=== PATIENT | male | born 1965 | race Caucasian/White ===

== ENCOUNTER 2018-04-06 21:53 | Emergency (ER) | payer SELFPAY ==
[2018-04-06 22:05] VITALS: BP 138/83; PULSE 99; O2SAT 98
[2018-04-06] MEDS ORDERED: Sodium Chloride 0.9% 1000 ML 1,000 ML IV STA (22:34)
--- NOTE | 2018-04-06 22:34 | ERPHSYRPT ---
- History of Present Illness Time Seen by Provider: 04/06/18 22:16 Source: patient Patient Subjective Stated Complaint: Pt arrives to ER with c/o abscess to left arm since states is now draining believes is infected. unsure of cause for abscess. Denies injury to arm. Abscess is now red and has some swelling around site. Triage Nursing Assessment: see above Physician History: PATIENT WITH A HISTORY OF HYPERTENSION, EXPRESSED A PIMPLE OVER LEFT MID FOREARM NOW HAS PROGRESSIVE SWELLING WITH DRAINAGE OVER LEFT MID FOREARM. DENIES FEVER OR CHILLS., HAS INCREASING REDNESS AND WARMTH AROUND WOUND. Occurred: days ago Method of Injury: other (EXPRESSED A PIMPLE OF LEFT FOREARM) Quality: constant, throbbing Severity of Pain-Max: moderate Severity of Pain-Current: moderate Extremities Pain Location: forearm: left Modifying Factors: Improves With: nothing Allergies/Adverse Reactions: morphine Allergy (Verified 04/06/18 22:05) Itching venom-wasp [wasp venom] Allergy (Verified 04/06/18 22:05) Home Medications: Valsartan/Hydrochlorothiazide [Valsartan-Hctz 320-12.5 mg Tab] 1 each PO DAILY 04/06/18 [History] Hx Tetanus, Diphtheria Vaccination/Date Given: No Hx Influenza Vaccination/Date Given: No Hx Pneumococcal Vaccination/Date Given: No - Review of Systems Constitutional: No Fever, No Chills Eyes: No Symptoms Ears, Nose, & Throat: No Symptoms Respiratory: No Cough, No Dyspnea Cardiac: No Chest Pain, No Edema, No Syncope Abdominal/Gastrointestinal: No Abdominal Pain, No Nausea, No Vomiting, No Diarrhea Genitourinary Symptoms: No Dysuria Musculoskeletal: Injury, Joint Pain, Joint Swelling, No Back Pain, No Neck Pain Skin: No Rash Neurological: No Dizziness, No Focal Weakness, No Sensory Changes Psychological: No Symptoms Endocrine: No Symptoms All Other Systems: Reviewed and Negative - Past Medical History Pertinent Past Medical History: Yes Neurological History: No Pertinent History ENT History: No Pertinent History Cardiac History: Hypertension Respiratory History: No Pertinent History Endocrine Medical History: No Pertinent History Musculoskeletal History: No Pertinent History GI Medical History: No Pertinent History History: No Pertinent History Psycho-Social History: No Pertinent History Male Reproductive Disorders: No Pertinent History - Past Surgical History Past Surgical History: Yes Neuro Surgical History: No Pertinent History Cardiac: No Pertinent History Respiratory: No Pertinent History Gastrointestinal: No Pertinent History Genitourinary: No Pertinent History Musculoskeletal: Orthopedic Surgery Male Surgical History: No Pertinent History Other Surgical History: LEFT ARM SURGERY - Social History Smoking Status: Current every day smoker How long have you smoked: YRS Exposure to second hand smoke: Yes Drug Use: none Patient Lives Alone: Yes - Nursing Vital Signs Nursing Vital Signs: Initial Vital Signs Temperature 99.2 F 04/06/18 21:57 Pulse Rate 99 H 04/06/18 21:57 Respiratory Rate 22 04/06/18 21:57 Blood Pressure 138/83 04/06/18 21:57 O2 Sat by Pulse Oximetry 98 04/06/18 21:57 Pain Scale Pain Intensity 9 - Physical Exam General Appearance: alert Eyes, Ears, Nose, Throat Exam: moist mucous membranes Neck Exam: non-tender, supple Cardiovascular/Respiratory Exam: chest non-tender, normal breath sounds, regular rate/rhythm, no respiratory distress Abdominal Exam: non-tender, No guarding Back Exam: normal inspection, No vertebral tenderness Elbow/Forearm Exam: pain (DORSUM MID FOREARM WITH 2CM NONFLUCUANT AREA WITH DRAINAGE. WARMTH, LEFT RADIAL PULSE 2+), soft tissue tenderness Neuro/Tendon Exam: normal sensation, normal motor functions Mental Status Exam: alert, oriented x 3, cooperative Skin Exam: normal color, warm, dry SpO2 Interpretation: normal SpO2: 98 Oxygen Delivery: Room Air Ordered Tests: Active Orders 24 hr Category Date Time Status BLOOD CULTURE Stat Lab 04/06/18 23:10 Received BMP Stat Lab 04/06/18 23:10 Completed CBC W DIFF Stat Lab 04/06/18 23:10 Completed CULTURE,WOUND Stat Lab 04/06/18 23:24 Ordered Lactic Acid Stat Lab 04/06/18 23:05 Completed Medication Summary Discontinued Medications Generic Name Dose Route Start Last Admin Trade Name Freq PRN Reason Stop Dose Admin Diphtheria/Tetanus/Acell Pertussis 0.5 ml 04/06/18 22:36 04/06/18 23:19 Adacel Vial IM 04/06/18 22:37 0.5 ml .ONCE ONE Administration Diphtheria/Tetanus/Acell Pertussis Confirm 04/06/18 22:48 Adacel Vial Administered 04/06/18 22:49 Dose 0.5 ml IM .STK-MED ONE Fentanyl Citrate 100 mcg 04/07/18 01:18 04/07/18 01:27 Sublimaze 100 Mcg/2 Ml IV 04/07/18 01:19 100 mcg STAT ONE Administration Fentanyl Citrate Confirm 04/07/18 01:21 Sublimaze 100 Mcg/2 Ml Administered 04/07/18 01:22 Dose 100 mcg .ROUTE .STK-MED ONE Sodium Chloride 1,000 mls @ 999 mls/hr 04/06/18 22:34 04/07/18 01:30 Sodium Chloride 0.9% 1000 Ml IV 04/06/18 23:34 Infused .Q1H1M STA Infusion Vancomycin HCl 1 gm in 250 mls @ 167 mls/hr 04/06/18 22:36 04/07/18 00:16 Vancomycin 1gm/ Ns 250ml IV 04/07/18 00:05 167 mls/hr STAT ONE Administration Piperacillin Sod/Tazobactam 100 mls @ 200 mls/hr 04/06/18 22:38 04/06/18 23: 21 Sod 4.5 gm/ Dextrose IV 04/06/18 23:07 200 mls/hr STAT ONE Administration Sodium Chloride Confirm 04/06/18 22:48 Sodium Chloride 0.9% 1000 Ml Administered 04/06/18 22:49 Dose 1,000 mls @ ud .ROUTE .STK-MED ONE Vancomycin HCl Confirm 04/06/18 22:48 Vancomycin 1gm/ Ns 250ml Administered 04/06/18 22:49 Dose 250 mls @ ud IV .STK-MED ONE Piperacillin Sod/Tazobactam Sod Confirm 04/06/18 22:49 Zosyn 3.375gm/100 Ml D5w Administered 04/06/18 22:50 Dose 3.375 gm in 100 mls @ ud IV .STK-MED ONE Ondansetron HCl 4 mg 04/07/18 01:18 04/07/18 01:27 Zofran 4 Mg/2 Ml Vial IV 04/07/18 01:19 4 mg STAT ONE Administration Ondansetron HCl Confirm 04/07/18 01:21 Zofran 4 Mg/2 Ml Vial Administered 04/07/18 01:22 Dose 4 mg .ROUTE .STK-MED ONE Lab/Rad Data: Laboratory Result Diagrams 04/06/18 23:10 04/06/18 23:10 Laboratory Results 04/06/18 04/06/18 04/06/18 Range/Units 23:10 23:10 23:05 WBC 14.1 H (4.0-10.5) K/mm3 RBC 4.29 (4.1-5.6) M/mm3 Hgb 14.7 (12.5-18.0) gm/dl Hct 41.8 L (42-50) % MCV 97.4 (78-100) fl MCH 34.3 H (26-32) pg MCHC 35.2 (32-36) g/dl RDW 12.8 (11.5-14.0) % Plt Count 210 (150-450) K/mm3 MPV 9.4 (6-9.5) fl Gran % 69.7 H (36.0-66.0) % Eos # (Auto) 0.14 (0-0.5) Absolute Lymphs (auto) 2.75 (1.0-4.6) Absolute Monos (auto) 1.36 H (0.0-1.3) Lymphocytes % 19.5 L (24.0-44.0) % Monocytes % 9.6 (0.0-12.0) % Eosinophils % 1.0 (0.00-5.0) % Basophils % 0.2 (0.0-0.4) % Absolute Granulocytes 9.83 H (1.4-6.9) Basophils # 0.03 (0-0.4) Sodium 141 (137-145) mmol/L Potassium 3.5 (3.5-5.1) mmol/L Chloride 103 (98-107) mmol/L Carbon Dioxide 31 H (22-30) mmol/L Anion Gap 11.2 (5-15) MEQ/L BUN 11 (9-20) mg/dL Creatinine 1.03 (0.66-1.25) mg/dL Estimated GFR > 60.0 ML/MIN Glucose 94 (74-106) mg/dL Lactic Acid 0.9 (0.4-2.0) Calcium 9.0 (8.4-10.2) mg/dL - Progress Progress Note: 04/06/18 23:51 IV NORMAL SALINE 1 LITER/HR, VANCOMYCIN 1GM, ZOSYN 3.375GM IVPG, LACTIC ACID 0.9, CBC WITH WBC-14.1K 08/21/18 01:19 Counseled pt/family regarding: lab results, diagnosis, need for follow-up - Departure Time of Disposition: 02:30 Departure Disposition: Home Clinical Impression: CELLULITIS LEFT FOREARM Condition: Stable Critical Care Time: No Referrals: RANDA GARVEY MD [Primary Care Provider] - Additional Instructions: ANTIBIOTIC AUGMENTIN 875MG TWICE DAILY FOR 10 DAYS. MOTRIN 600MG EVERY 6 HOURS FOR PAIN AND TYLENOL #3 EVERY 6 HOURS FOR PAIN. WEAR LEFT ARM SLING FOR COMFORT. CONSULT YOUR PRIMARY CARE PROVIDER FOR FOLLOWUP IN 1 WEEK. WATCH FOR INCREASING SIGNS OF INFECTION, REDNESS, SWELLING OR DRAINAGE. Prescriptions: Codeine Phosphate/APAP #3 [Tylenol #3 Tablet] 1 tab PO Q6H PRN PRN #10 tablet PRN Reason: Pain Ibuprofen 600 mg PO Q6HPRN PRN #20 tablet PRN Reason: Pain Amox Tr/Potass Clav. 875 mg [Augmentin 875-125 Tablet] 1 each PO BID #20 tablet
[2018-04-06] MEDS ORDERED: Vancomycin 1GM/ Ns 250ML*** 1 GM/250 ML IVPB IV ONE (22:36)
[2018-04-06] MEDS ORDERED: Adacel Vial IM ONE ×2 (22:36→22:48)
[2018-04-06] MEDS ORDERED: Zosyn INJ 4.5 GM in D5w 100ML Mini Bag 100 ML 100 ML IV ONE (22:38)
[2018-04-06] MEDS ORDERED: Vancomycin 1GM/ Ns 250ML*** 250 ML IV ONE (22:48)
[2018-04-06] MEDS ORDERED: Sodium Chloride 0.9% 1000 ML 1,000 ML ONE (22:48)
[2018-04-06] MEDS ORDERED: Zosyn 3.375GM/100 Ml D5W 3.375 GM/100 ML IVPB IV ONE (22:49)
[2018-04-06 23:17] LABS: BASOPHIL % 0.2 % (0.0-0.4); Basophil (Absolute #) 0.03 (0-0.4); Eosinophil (Absolute #) 0.14 (0-0.5); Granulocyte Absolute (ANC) 9.83 (1.4-6.9); Granulocytes % 69.7 % (36.0-66.0); Hematocrit 41.8 % (42-50); Hemoglobin 14.7 gm/dl (12.5-18.0); Lymphocyte (Absolute #) 2.75 (1.0-4.6); Lymphocytes % 19.5 % (24.0-44.0); Mean Cell Volume 97.4 fl (78-100); Mean Corpuscular Hemoglobin 34.3 pg (26-32); Mean Corpuscular Hgb Concent. 35.2 g/dl (32-36); Mean Platelet Volume 9.4 fl (6-9.5); Monocyte (Absolute #) 1.36 (0.0-1.3); Monocytes % 9.6 % (0.0-12.0); Platelet Count 210 K/mm3 (150-450); Red Blood Count 4.29 M/mm3 (4.1-5.6); Red Cell Distribution Width 12.8 % (11.5-14.0); White Blood Count 14.1 K/mm3 (4.0-10.5)
[2018-04-06 23:35] LABS: ANION GAP 11.2 MEQ/L (5-15); BLOOD UREA NITROGEN 11 mg/dL (9-20); CHLORIDE 103 mmol/L (98-107); Carbon Dioxide 31 mmol/L (22-30); Creatinine 1 1.03 mg/dL (0.66-1.25); Glucose 94 mg/dL (74-106); Potassium 3.5 mmol/L (3.5-5.1); SODIUM 141 mmol/L (137-145)
[2018-04-07] MEDS ORDERED: Zofran 4 MG/2 ML VIAL IV ONE (01:18)
[2018-04-07] MEDS ORDERED: SUBLIMAZE 100 MCG/2 ML IV ONE (01:18)
[2018-04-07] MEDS ORDERED: SUBLIMAZE 100 MCG/2 ML ONE (01:21)
[2018-04-07] MEDS ORDERED: Zofran 4 MG/2 ML VIAL ONE (01:21)
== END 2018-04-07 02:47 | disposition home or self-care (01) ==
LOC: ED 21:53
DX: L03.114 Cellulitis of left upper limb (principal); Z79.899 Other long term (current) drug therapy
CPT/HCPCS: 36000; 36415; 80048; 83605; 85025; 87040; 87070; 87077; 87186; 90471; 90715; 96360; 96361; 96365; 96367; 96374; 96375; 99284; J2405; J2543; J3010; J3370

== ENCOUNTER 2024-01-26 14:00 | Emergency (ER) | payer MEDICAID ==
--- NOTE | 2024-01-26 14:04 | ERPHSYRPT ---
- History of Present Illness Time Seen by Provider: 01/26/24 14:04 Source: patient Exam Limitations: no limitations Physician History: This is a 58-year-old overweight white male patient who quit smoking 2 months ago after having an episode of pneumonia. Patient states in the last week he has had a productive cough and symptoms that are mimicking his pneumonia symptom s from 2 months ago. Patient arrives by private vehicle. He complains of head congestion, body aches and cough. His room air oxygen saturation level is 97%. Patient does have a history of hypertension and asthma. He denies chest pain at this time. He has had no nausea vomiting or diarrhea symptoms. Timing/Duration: week(s) (1), worse Severity: mild (Moderate) Modifying Factors: Improves With: nothing Associated Symptoms: cough, malaise, No nausea, No vomiting, No abdominal pain, No shortness of breath, No chest pain, No fever, No headaches Allergies/Adverse Reactions: morphine Allergy (Verified 04/06/18 22:05) Itching venom-wasp [wasp venom] Allergy (Verified 04/06/18 22:05) Home Medications: Valsartan/Hydrochlorothiazide [Valsartan-Hctz 320-12.5 mg Tab] 1 each PO DAILY 04/06/18 [History] Albuterol Sulfate Mdi [ALBUTEROL/Proair Hfa MDI] 1 puff IH DAILY 01/26/24 [History] Hx Tetanus, Diphtheria Vaccination/Date Given: No Hx Influenza Vaccination/Date Given: No Hx Pneumococcal Vaccination/Date Given: No Travel Risk - International Travel Have you traveled outside of the country in past 3 weeks: No - Emerging Infectious Disease Are you exhibiting symptoms associated with any current EIDs: Yes Symptoms: Cough: New Onset, Headaches/Body Aches/ - Review of Systems Constitutional: No Symptoms Eyes: No Symptoms Ears, Nose, & Throat: Nose Congestion Respiratory: Cough Cardiac: No Symptoms Abdominal/Gastrointestinal: No Symptoms Genitourinary Symptoms: No Symptoms Musculoskeletal: Arthralgias, Myalgias Skin: No Symptoms Neurological: No Symptoms Psychological: No Symptoms Endocrine: No Symptoms Hematologic/Lymphatic: No Symptoms All Other Systems: Reviewed and Negative - Past Medical History Pertinent Past Medical History: Yes Neurological History: No Pertinent History ENT History: No Pertinent History Cardiac History: Hypertension Respiratory History: No Pertinent History Endocrine Medical History: No Pertinent History Musculoskeletal History: No Pertinent History GI Medical History: No Pertinent History History: No Pertinent History Psycho-Social History: No Pertinent History Male Reproductive Disorders: No Pertinent History - Past Surgical History Past Surgical History: Yes Neuro Surgical History: No Pertinent History Cardiac: No Pertinent History Respiratory: No Pertinent History Gastrointestinal: No Pertinent History Genitourinary: No Pertinent History Musculoskeletal: Orthopedic Surgery Male Surgical History: No Pertinent History Other Surgical History: LEFT ARM SURGERY - Social History Smoking Status: Current every day smoker How long have you smoked: YRS Exposure to second hand smoke: Yes Drug Use: none Patient Lives Alone: Yes - Nursing Vital Signs Nursing Vital Signs: Initial Vital Signs Temperature 97.6 F 01/26/24 14:06 Pulse Rate 82 01/26/24 14:06 Respiratory Rate 24 01/26/24 14:06 Blood Pressure 194/103 01/26/24 14:06 O2 Sat by Pulse Oximetry 95 01/26/24 14:06 Pain Scale Pain Intensity 4 - Physical Exam General Appearance: no apparent distress, alert, anxiety, obese Eye Exam: PERRL/EOMI, eyes nml inspection Ears, Nose, Throat Exam: normal ENT inspection, moist mucous membranes Neck Exam: normal inspection, non-tender, supple, full range of motion Respiratory Exam: airway intact, wheezing, No chest tenderness, No respiratory distress Cardiovascular Exam: regular rate/rhythm (Mild expiratory wheeze left base), normal heart sounds, normal peripheral pulses Gastrointestinal/Abdomen Exam: soft, normal bowel sounds, No tenderness Rectal Exam: not done Back Exam: normal inspection, normal range of motion, No CVA tenderness, No vertebral tenderness Extremity Exam: normal inspection, normal range of motion, pelvis stable Neurologic Exam: alert, oriented x 3, cooperative, 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 nml as tested, nml cerebellar function, nml station & gait, sensation nml Skin Exam: normal color, warm, dry Lymphatic Exam: No adenopathy SpO2 Interpretation: normal O2 Delivery: Room Air - Course Nursing assessment & vital signs reviewed: Yes EKG Interpreted by Me: RATE (81), Sinus Rhythm, NORMAL AXIS, NORMAL INTERVALS, NORMAL QRS, NORMAL ST-T, Other (No acute ischemia on today's twelve-lead EKG.) Ordered Tests: Active Orders 24 hr Category Date Time Status EKG-ER Only STAT Care 01/26/24 14:18 Active IV Insertion STAT Care 01/26/24 14:18 Active Pulse Oximetry (ED) STAT Care 01/26/24 14:18 Active CHEST 1 VIEW (PORTABLE) Stat Exams 01/26/24 14:18 Completed BLOOD CULTURE Stat Lab 01/26/24 14:18 Ordered CBC W DIFF Stat Lab 01/26/24 14:36 Completed CMP Stat Lab 01/26/24 14:36 Completed CULTURE,SPUTUM Stat Lab 01/26/24 14:36 Received MONO SCREEN Stat Lab 01/26/24 14:30 Completed NT PRO BNPII Stat Lab 01/26/24 14:36 Completed TROPONIN Q4H Lab 01/26/24 14:30 Completed TROPONIN Q4H Lab 01/26/24 18:30 Ordered TROPONIN Q4H Lab 01/26/24 22:30 Ordered Respiratory Therapy Assessment DAILY RT 01/26/24 14:31 Completed Medication Summary Generic Name Dose Route Start Last Admin Trade Name Freq PRN Reason Stop Dose Admin Ceftriaxone Sodium 1 gm in 100 mls @ 200 mls/hr 01/26/24 15:57 Rocephin 1 Gm / 100 Ml Nacl IV 01/26/24 16:26 STAT ONE Discontinued Medications Generic Name Dose Route Start Last Admin Trade Name Freq PRN Reason Stop Dose Admin Albuterol/Ipratropium 3 ml 01/26/24 14:31 01/26/24 14:34 Ipratropium/Albuterol Sulfate 3 Ml Ampul.Neb IH 01/26/24 14:32 3 ml STAT ONE Administration Albuterol/Ipratropium Confirm 01/26/24 14:32 Ipratropium/Albuterol Sulfate 3 Ml Ampul.Neb Administered 01/26/24 14:33 Dose 3 ml IH .STK-MED ONE Methylprednisolone Sodium 0 mg 01/26/24 14:18 01/26/24 14:44 Succinate 125 mg/ Sterile IV 01/26/24 14:19 125 mg Water 2 ml STAT ONE Administration Methylprednisolone Sodium Succinate Confirm 01/26/24 14:34 Methylprednis Sod Succ 125 Mg/2 Ml Vial Administered 01/26/24 14:35 Dose 125 mg .ROUTE .STK-MED ONE Sterile Water Confirm 01/26/24 14:34 Water For Injection,Sterile 10 Ml Vial Administered 01/26/24 14:35 Dose 10 ml IJ .STK-MED ONE Lab/Rad Data: Laboratory Result Diagrams 01/26/24 14:36 01/26/24 14:36 Laboratory Results 01/26/24 01/26/24 01/26/24 Range/Units 14:36 14:36 14:30 WBC 6.3 (4.23-9.07) x10^3/uL RBC 4.09 L (4.63-6.08) x10^6/uL Hgb 13.5 L (13.7-17.5) g/dL Hct 38.6 L (40.1-51.0) % MCV 94.4 H (79.0-92.2) fL MCH 33.0 H (25.7-32.2) pg MCHC 35.0 (32.3-36.5) g/dL RDW 11.9 (11.6-14.4) % Plt Count 225 (163-337) x10^3/uL MPV 9.4 (9.4-12.4) fL Gran % 43.8 (34.0-67.9) % Immature Gran % (Auto) 0.3 (0.001-0.429) % Nucleat RBC Rel Count 0.0 (0.00-0.2) % Eos # (Auto) 0.21 (0.04-0.54) x10^3/uL Immature Gran # (Auto) 0.02 (0.001-0.031) x10^3u/L Absolute Lymphs (auto) 2.60 (1.32-3.57) x10^3/uL Absolute Monos (auto) 0.68 (0.30-0.82) x10^3/uL Absolute Nucleated RBC 0.00 (0.00-0.012) x10^3u/L Lymphocytes % 41.0 (21.8-53.1) % Monocytes % 10.7 (5.3-12.2) % Eosinophils % 3.3 (0.8-7.0) % Basophils % 0.9 (0.2-1.2) % Absolute Granulocytes 2.77 (1.78-5.38) x10^3/uL Basophils # 0.06 (0.01-0.08) x10^3/uL Sodium 139 (135-145) mmol/L Potassium 3.7 (3.5-5.1) mmol/L Chloride 108 H (98-107) mmol/L Carbon Dioxide 27 (22-30) mmol/L Anion Gap 7.7 (5-15) MEQ/L BUN 15 (9-20) mg/dL Creatinine 0.89 (0.66-1.25) mg/dL Estimated GFR 100.6 ML/MIN Glucose 121 H (74-106) mg/dL Calcium 8.9 (8.4-10.2) mg/dL Total Bilirubin 0.60 (0.2-1.3) mg/dL AST 26 (17-59) U/L ALT 26 (0-50) U/L Alkaline Phosphatase 71 (38-126) U/L Troponin I (0.000-0.033) ng/mL NT-Pro-B Natriuret Pep 62.0 (<300) pg/mL Serum Total Protein 6.7 (6.3-8.2) g/dL Albumin 3.8 (3.5-5.0) g/dL Monoscreen (NEGATIVE) Influenza Type A Ag NEGATIVE (NEGATIVE) Influenza Type B Ag NEGATIVE (NEGATIVE) RSV (PCR) NEGATIVE (NEGATIVE) SARS-CoV-2 (PCR) NEGATIVE (NEGATIVE) 01/26/24 01/26/24 Range/Units 14:30 14:30 WBC (4.23-9.07) x10^3/uL RBC (4.63-6.08) x10^6/uL Hgb (13.7-17.5) g/dL Hct (40.1-51.0) % MCV (79.0-92.2) fL MCH (25.7-32.2) pg MCHC (32.3-36.5) g/dL RDW (11.6-14.4) % Plt Count (163-337) x10^3/uL MPV (9.4-12.4) fL Gran % (34.0-67.9) % Immature Gran % (Auto) (0.001-0.429) % Nucleat RBC Rel Count (0.00-0.2) % Eos # (Auto) (0.04-0.54) x10^3/uL Immature Gran # (Auto) (0.001-0.031) x10^3u/L Absolute Lymphs (auto) (1.32-3.57) x10^3/uL Absolute Monos (auto) (0.30-0.82) x10^3/uL Absolute Nucleated RBC (0.00-0.012) x10^3u/L Lymphocytes % (21.8-53.1) % Monocytes % (5.3-12.2) % Eosinophils % (0.8-7.0) % Basophils % (0.2-1.2) % Absolute Granulocytes (1.78-5.38) x10^3/uL Basophils # (0.01-0.08) x10^3/uL Sodium (135-145) mmol/L Potassium (3.5-5.1) mmol/L Chloride (98-107) mmol/L Carbon Dioxide (22-30) mmol/L Anion Gap (5-15) MEQ/L BUN (9-20) mg/dL Creatinine (0.66-1.25) mg/dL Estimated GFR ML/MIN Glucose (74-106) mg/dL Calcium (8.4-10.2) mg/dL Total Bilirubin (0.2-1.3) mg/dL AST (17-59) U/L ALT (0-50) U/L Alkaline Phosphatase (38-126) U/L Troponin I < 0.012 (0.000-0.033) ng/mL NT-Pro-B Natriuret Pep (<300) pg/mL Serum Total Protein (6.3-8.2) g/dL Albumin (3.5-5.0) g/dL Monoscreen NEGATIVE (NEGATIVE) Influenza Type A Ag (NEGATIVE) Influenza Type B Ag (NEGATIVE) RSV (PCR) (NEGATIVE) SARS-CoV-2 (PCR) (NEGATIVE) - Progress Progress: improved, re-examined Progress Note: 01/26/24 14:28 My medical decision making and the assignment of moderate complexity to this patient's medical issue today is based on review of the patient's past medical history, review of the patient's medication list, review of the patient's drug allergy list, history present illness and physical findings on examination. The workup includes placement of intravenous line, infusion of Solu-Medrol, CBC, CM P, troponin level, viral swabs, mono swab, group A strep swab, chest x-ray, troponin level. We will also have respiratory therapy evaluate this patient for a nebulizer treatment. Patient stated that he preferred not to have a CT scan of the chest with contrast. Differential diagnosis includes but is not limited to viral illness, pneumonia, myocardial infarction, arrhythmias, bronchitis 01/26/24 15:11 Chest x-ray was interpreted by the radiologist and I reviewed the impression. The chest x-ray has nonacute features. 01/26/24 15:58 I interpreted the patient's laboratory data results. Based on the laboratory data results, the patient does not have an acute or emergent medical issue at this time. 01/26/24 16:05 Patient denies chest pain. His shortness of breath and cough have improved. His blood pressure is now approximately 130s over 90s. Counseled pt/family regarding: lab results, diagnosis, rad results Medical Desision Making - Diagnostic Testing Diagnostic test were ordered, analyzed, and reviewed by me: Yes Radiological Interpretation: Reviewed by me, Teleradiologist Report - Risk of complications The pt has a mod risk of morbidity or mortality based on: Need for prescription drug management - Departure Departure Disposition: Home Clinical Impression: Upper respiratory infection Condition: Stable Critical Care Time: No Referrals: RANDA GARVEY MD [Primary Care Provider] - Follow up/PCP as directed Additional Instructions: Drink plenty of fluids. Continue not smoking. Take your medications as prescribed. Call your primary care provider tomorrow, 01/27/2024, to make arrangements for follow-up appointment for further evaluation management. Return to the emergency department if symptoms worsen. Prescriptions: Benzonatate 200 mg PO TID PRN #10 cap PRN Reason: Cough Prednisone 10 mg [Deltasone 10 mg] 10 mg PO TID #12 tablet Azithromycin 250 mg [Zithromax 250 MG TABLET] 250 mg PO ZPACK #6 tablet
[2024-01-26 14:13] VITALS: TEMP 97.6
[2024-01-26] MEDS ORDERED: DUONEB 0.5-3 MG/3 ml Neb IH ONE (14:32)
[2024-01-26] MEDS ORDERED: solu-MEDROL ONE (14:34)
[2024-01-26] MEDS ORDERED: Sterile H2O 10 ml IJ ONE (14:34)
[2024-01-26] MEDS: DUONEB 0.5-3 MG/3 ml Neb IH ONE (14:34)
[2024-01-26] MEDS: solu-MEDROL 125 MG, Sterile H2O 10 ml 2 ML IV ONE (14:44)
[2024-01-26 14:55] LABS: Absolute Neutrophil Ct (ANC) 2.77 x10^3/uL (1.78-5.38); BASOPHIL % 0.9 % (0.2-1.2); Basophil (Absolute #) 0.06 x10^3/uL (0.01-0.08); Eosinophil % 3.3 % (0.8-7.0); Eosinophil (Absolute #) 0.21 x10^3/uL (0.04-0.54); Hematocrit 38.6 % (40.1-51.0); Hemoglobin 13.5 g/dL (13.7-17.5); IMMATURE GRAN # 0.02 x10^3u/L (0.001-0.031); IMMATURE GRAN % 0.3 % (0.001-0.429); Mean Cell Volume 94.4 fL (79.0-92.2); Mean Platelet Volume 9.4 fL (9.4-12.4); Monocyte (Absolute #) 0.68 x10^3/uL (0.30-0.82); Monocytes % 10.7 % (5.3-12.2); Neutrophil % 43.8 % (34.0-67.9); Platelet Count 225 x10^3/uL (163-337); Red Blood Count 4.09 x10^6/uL (4.63-6.08); Red Cell Distribution Width 11.9 % (11.6-14.4); White Blood Count 6.3 x10^3/uL (4.23-9.07)
--- NOTE | 2024-01-26 15:07 | XRAY ---
Indication: Productive cough. Comparison: April 09, 2013 Portable chest remains inflated and clear with a few incidental tiny calcified granulomas. Heart not enlarged for AP portable technique. Bony thorax intact. Impression: Continued nonacute chest with again incidental old granulomatous disease.
[2024-01-26 15:26] LABS: ALBUMIN 3.8 g/dL (3.5-5.0); ANION GAP 7.7 MEQ/L (5-15); BILIRUBIN,TOTAL 0.6 mg/dL (0.2-1.3); Calcium 8.9 mg/dL (8.4-10.2); Creatinine 1 0.89 mg/dL (0.66-1.25); EST GLOMERULAR FILTRATION RATE 100.6 ML/MIN; Potassium 3.7 mmol/L (3.5-5.1); Total Protein 6.7 g/dL (6.3-8.2)
[2024-01-26 15:32] LABS: INFLUENZA A NEGATIVE (NEGATIVE); INFLUENZA B NEGATIVE (NEGATIVE); RESPIRATORY SYNCTIAL VIRUS NEGATIVE (NEGATIVE); SARS-CoV-2 Xpert Express NEGATIVE (NEGATIVE)
[2024-01-26] MEDS: ROCEPHIN 1 GM / 100 ML NaCl 1 GM/100 ML IVPB IV ONE (16:11)
[2024-01-26] MEDS ORDERED: ROCEPHIN 1 GM / 100 ML NaCl 1 GM/100 ML IVPB IV ONE (16:11)
[2024-01-26 16:42] VITALS: BP 136/83; PULSE 71; RESP 21; O2SAT 93
== END 2024-01-26 16:56 | disposition home or self-care (01) ==
LOC: ED 14:00
DX: J06.9 Acute upper respiratory infection, unspecified (principal); R05.1 Acute cough; M79.10 Myalgia, unspecified site; I10 Essential (primary) hypertension; Z79.52 Long term (current) use of systemic steroids; Z79.899 Other long term (current) drug therapy
CPT/HCPCS: 0241U; 36000; 36415; 71045; 80053; 83880; 84484; 85025; 86308; 87040; 87070; 87077; 87186; 93005; 94640; 94760; 96365; 96374; 99284; J0696; J2919; A9270-GY

== ENCOUNTER 2024-04-21 11:11 | Emergency (ER) | payer MEDICAID, OTHER ==
--- NOTE | 2024-04-21 12:12 | ERPHSYRPT ---
- History of Present Illness Time Seen by Provider: 04/21/24 12:00 Source: patient Exam Limitations: no limitations Patient Subjective Stated Complaint: PT states "I am overwhelmed and they made me come here." Triage Nursing Assessment: PT presented ambulating from [place] by security. Pt tearful, pt anxious and overwhelmed. Timing/Duration: today Severity: mild Associated Symptoms: denies symptoms Allergies/Adverse Reactions: morphine Allergy (Verified 04/06/18 22:05) Itching venom-wasp [wasp venom] Allergy (Verified 04/06/18 22:05) Home Medications: Valsartan/Hydrochlorothiazide [Valsartan-Hctz 320-12.5 mg Tab] 1 each PO DAILY 04/06/18 [History] Albuterol Sulfate Mdi [ALBUTEROL/Proair Hfa MDI] 1 puff IH DAILY 01/26/24 [History] Hx Tetanus, Diphtheria Vaccination/Date Given: No Hx Influenza Vaccination/Date Given: No Hx Pneumococcal Vaccination/Date Given: No Immunizations Up to Date: No Travel Risk - International Travel Have you traveled outside of the country in past 3 weeks: No - Emerging Infectious Disease Are you exhibiting symptoms associated with any current EIDs: No Symptoms: Cough: New Onset, Headaches/Body Aches/ - Review of Systems Eyes: No Symptoms Ears, Nose, & Throat: No Symptoms Respiratory: No Symptoms Cardiac: No Symptoms Abdominal/Gastrointestinal: No Symptoms Genitourinary Symptoms: No Symptoms Musculoskeletal: No Symptoms Skin: No Symptoms Neurological: No Symptoms Psychological: No Symptoms Endocrine: No Symptoms Hematologic/Lymphatic: No Symptoms Immunological/Allergic: No Symptoms - Past Medical History Pertinent Past Medical History: Yes Neurological History: No Pertinent History ENT History: No Pertinent History Cardiac History: Hypertension Respiratory History: No Pertinent History Endocrine Medical History: No Pertinent History Musculoskeletal History: No Pertinent History GI Medical History: No Pertinent History History: No Pertinent History Psycho-Social History: No Pertinent History Male Reproductive Disorders: No Pertinent History - Past Surgical History Past Surgical History: Yes Neuro Surgical History: No Pertinent History Cardiac: No Pertinent History Respiratory: No Pertinent History Gastrointestinal: No Pertinent History Genitourinary: No Pertinent History Musculoskeletal: Orthopedic Surgery Male Surgical History: No Pertinent History Other Surgical History: LEFT ARM SURGERY - Social History Smoking Status: Current every day smoker How long have you smoked: YRS Exposure to second hand smoke: Yes Drug Use: none Patient Lives Alone: Yes - Social Determinants of Health Will the patient participate in the screening: Declined to provide - Nursing Vital Signs Nursing Vital Signs: Initial Vital Signs Temperature 98.5 F 04/21/24 11:12 Pulse Rate 70 04/21/24 11:12 Respiratory Rate 20 04/21/24 11:12 Blood Pressure 183/88 04/21/24 11:12 O2 Sat by Pulse Oximetry 98 04/21/24 11:12 Pain Scale Pain Intensity 4 - Physical Exam General Appearance: no apparent distress Eye Exam: PERRL/EOMI Ears, Nose, Throat Exam: normal ENT inspection Neck Exam: normal inspection Respiratory Exam: normal breath sounds Cardiovascular Exam: regular rate/rhythm Gastrointestinal/Abdomen Exam: soft, normal bowel sounds SpO2: 98 Ordered Tests: Active Orders 24 hr Category Date Time Status Clean Catch Urine Specimen STAT Care 04/21/24 12:37 Active EKG-ER Only STAT Care 04/21/24 11:49 Active ACETAMINOPHEN Stat Lab 04/21/24 13:03 Completed CBC W DIFF Stat Lab 04/21/24 13:03 Completed CMP Stat Lab 04/21/24 13:03 Completed SALICYLATE Stat Lab 04/21/24 13:03 Completed UA W/RFX UR CULTURE Stat Lab 04/21/24 12:49 Completed Urine Triage Profile Stat Lab 04/21/24 12:49 Completed Medication Summary Discontinued Medications Generic Name Dose Route Start Last Admin Trade Name Richard PRN Reason Stop Dose Admin Ibuprofen 800 mg 04/21/24 18:12 04/21/24 18:16 Ibuprofen 400 Mg Tablet PO 04/21/24 18:13 800 mg STAT ONE Administration Ibuprofen Confirm 04/21/24 18:14 Ibuprofen 400 Mg Tablet Administered 04/21/24 18:15 Dose 800 mg .ROUTE .STK-MED ONE Lab/Rad Data: Laboratory Result Diagrams 04/21/24 13:03 04/21/24 13:03 Laboratory Results 04/21/24 04/21/24 04/21/24 Range/Units 13:03 13:03 12:49 WBC 5.8 (4.23-9.07) x10^3/uL RBC 4.31 L (4.63-6.08) x10^6/uL Hgb 14.1 (13.7-17.5) g/dL Hct 39.8 L (40.1-51.0) % MCV 92.3 H (79.0-92.2) fL MCH 32.7 H (25.7-32.2) pg MCHC 35.4 (32.3-36.5) g/dL RDW 11.4 L (11.6-14.4) % Plt Count 186 (163-337) x10^3/uL MPV 9.4 (9.4-12.4) fL Gran % 40.3 (34.0-67.9) % Immature Gran % (Auto) 0.2 (0.001-0.429) % Nucleat RBC Rel Count 0.0 (0.00-0.2) % Eos # (Auto) 0.05 (0.04-0.54) x10^3/uL Immature Gran # (Auto) 0.01 (0.001-0.031) x10^3u/L Absolute Lymphs (auto) 2.93 (1.32-3.57) x10^3/uL Absolute Monos (auto) 0.41 (0.30-0.82) x10^3/uL Absolute Nucleated RBC 0.00 (0.00-0.012) x10^3u/L Lymphocytes % 50.5 (21.8-53.1) % Monocytes % 7.1 (5.3-12.2) % Eosinophils % 0.9 (0.8-7.0) % Basophils % 1.0 (0.2-1.2) % Absolute Granulocytes 2.34 (1.78-5.38) x10^3/uL Basophils # 0.06 (0.01-0.08) x10^3/uL Sodium 140 (135-145) mmol/L Potassium 4.1 (3.5-5.1) mmol/L Chloride 104 (98-107) mmol/L Carbon Dioxide 31 H (22-30) mmol/L Anion Gap 8.8 (5-15) MEQ/L BUN 16 (9-20) mg/dL Creatinine 1.12 (0.66-1.25) mg/dL Estimated GFR 77.1 ML/MIN Glucose 103 (74-106) mg/dL Calcium 8.9 (8.4-10.2) mg/dL Total Bilirubin 0.80 (0.2-1.3) mg/dL AST 32 (17-59) U/L ALT 36 (0-50) U/L Alkaline Phosphatase 60 (38-126) U/L Serum Total Protein 6.3 (6.3-8.2) g/dL Albumin 3.7 (3.5-5.0) g/dL Urine Color (Yellow) Urine Appearance (Clear) Urine pH (4.6-8.0) Ur Specific [place] (1.005-1.030) Urine Protein (Negative) Urine Glucose (UA) (Negative) mg/dL Urine Ketones (Negative) Urine Blood (Negative) Urine Nitrite (Negative) Urine Bilirubin (Negative) Urine Urobilinogen (0.2) mg/dL Ur Leukocyte Esterase (Negative) U Hyaline Cast (Auto) (0-2) /LPF Urine Microscopic RBC (0-5) /HPF Urine Microscopic WBC (0-5) /HPF Ur Epithelial Cells (None Seen) /HPF Amorphous Crystals (None Seen) /HPF Urine Bacteria (None Seen) /HPF Urine Culture Reflexed (NO) Salicylates < 1.0 L (2-20) mg/dL Urine Opiates Level NEGATIVE (NEGATIVE) Ur Methadone NEGATIVE (NEGATIVE) Acetaminophen < 10 L (10-30) ug/ml Urine Barbiturates NEGATIVE (NEGATIVE) Ur Phencyclidine (PCP) NEGATIVE (NEGATIVE) Urine Amphetamine NEGATIVE (NEGATIVE) U Benzodiazepine Level NEGATIVE (NEGATIVE) Urine Cocaine NEGATIVE (NEGATIVE) Urine Marijuana (THC) NEGATIVE (NEGATIVE) 04/21/24 Range/Units 12:49 WBC (4.23-9.07) x10^3/uL RBC (4.63-6.08) x10^6/uL Hgb (13.7-17.5) g/dL Hct (40.1-51.0) % MCV (79.0-92.2) fL MCH (25.7-32.2) pg MCHC (32.3-36.5) g/dL RDW (11.6-14.4) % Plt Count (163-337) x10^3/uL MPV (9.4-12.4) fL Gran % (34.0-67.9) % Immature Gran % (Auto) (0.001-0.429) % Nucleat RBC Rel Count (0.00-0.2) % Eos # (Auto) (0.04-0.54) x10^3/uL Immature Gran # (Auto) (0.001-0.031) x10^3u/L Absolute Lymphs (auto) (1.32-3.57) x10^3/uL Absolute Monos (auto) (0.30-0.82) x10^3/uL Absolute Nucleated RBC (0.00-0.012) x10^3u/L Lymphocytes % (21.8-53.1) % Monocytes % (5.3-12.2) % Eosinophils % (0.8-7.0) % Basophils % (0.2-1.2) % Absolute Granulocytes (1.78-5.38) x10^3/uL Basophils # (0.01-0.08) x10^3/uL Sodium (135-145) mmol/L Potassium (3.5-5.1) mmol/L Chloride (98-107) mmol/L Carbon Dioxide (22-30) mmol/L Anion Gap (5-15) MEQ/L BUN (9-20) mg/dL Creatinine (0.66-1.25) mg/dL Estimated GFR ML/MIN Glucose (74-106) mg/dL Calcium (8.4-10.2) mg/dL Total Bilirubin (0.2-1.3) mg/dL AST (17-59) U/L ALT (0-50) U/L Alkaline Phosphatase (38-126) U/L Serum Total Protein (6.3-8.2) g/dL Albumin (3.5-5.0) g/dL Urine Color Yellow (Yellow) Urine Appearance Turbid A (Clear) Urine pH 8.0 (4.6-8.0) Ur Specific [place] 1.015 (1.005-1.030) Urine Protein Negative (Negative) Urine Glucose (UA) Negative (Negative) mg/dL Urine Ketones Negative (Negative) Urine Blood Negative (Negative) Urine Nitrite Negative (Negative) Urine Bilirubin Negative (Negative) Urine Urobilinogen 0.2 (0.2) mg/dL Ur Leukocyte Esterase Negative (Negative) U Hyaline Cast (Auto) NONE SEEN (0-2) /LPF Urine Microscopic RBC 0-2 (0-5) /HPF Urine Microscopic WBC 0-2 (0-5) /HPF Ur Epithelial Cells Rare (None Seen) /HPF Amorphous Crystals Many A (None Seen) /HPF Urine Bacteria Few A (None Seen) /HPF Urine Culture Reflexed NO (NO) Salicylates (2-20) mg/dL Urine Opiates Level (NEGATIVE) Ur Methadone (NEGATIVE) Acetaminophen (10-30) ug/ml Urine Barbiturates (NEGATIVE) Ur Phencyclidine (PCP) (NEGATIVE) Urine Amphetamine (NEGATIVE) U Benzodiazepine Level (NEGATIVE) Urine Cocaine (NEGATIVE) Urine Marijuana (THC) (NEGATIVE) - Progress Progress Note: patient seen and evaluated for his depression an HENNA was signed to admit the patient and transfer the patient directly to [facility] - patient is agreeable 04/21/24 12:11 04/21/24 18:48 - Departure Departure Disposition: Transfer ([facility]) Clinical Impression: Anxiety, Depressed affect Condition: Good Critical Care Time: No [facility] - Follow up/PCP as directed Prescriptions: Ondansetron ODT 4 MG [Zofran Odt 4 mg] 4 mg PO Q6H PRN PRN #10 tablet PRN Reason: Vomiting
[2024-04-21 13:08] LABS: Absolute Neutrophil Ct (ANC) 2.34 x10^3/uL (1.78-5.38); Basophil (Absolute #) 0.06 x10^3/uL (0.01-0.08); Eosinophil % 0.9 % (0.8-7.0); Eosinophil (Absolute #) 0.05 x10^3/uL (0.04-0.54); Hematocrit 39.8 % (40.1-51.0); Hemoglobin 14.1 g/dL (13.7-17.5); IMMATURE GRAN # 0.01 x10^3u/L (0.001-0.031); IMMATURE GRAN % 0.2 % (0.001-0.429); Lymphocyte (Absolute #) 2.93 x10^3/uL (1.32-3.57); Lymphocytes % 50.5 % (21.8-53.1); Mean Cell Volume 92.3 fL (79.0-92.2); Mean Corpuscular Hemoglobin 32.7 pg (25.7-32.2); Mean Corpuscular Hgb Concent. 35.4 g/dL (32.3-36.5); Mean Platelet Volume 9.4 fL (9.4-12.4); Monocyte (Absolute #) 0.41 x10^3/uL (0.30-0.82); Monocytes % 7.1 % (5.3-12.2); Neutrophil % 40.3 % (34.0-67.9); Platelet Count 186 x10^3/uL (163-337); Red Blood Count 4.31 x10^6/uL (4.63-6.08); Red Cell Distribution Width 11.4 % (11.6-14.4); White Blood Count 5.8 x10^3/uL (4.23-9.07)
[2024-04-21 13:23] LABS: ACETAMINOPHEN < 10 ug/ml (10-30); ALBUMIN 3.7 g/dL (3.5-5.0); ALKALINE PHOSPHATASE 60 U/L (38-126); ANION GAP 8.8 MEQ/L (5-15); BLOOD UREA NITROGEN 16 mg/dL (9-20); CHLORIDE 104 mmol/L (98-107); Calcium 8.9 mg/dL (8.4-10.2); Carbon Dioxide 31 mmol/L (22-30); Creatinine 1 1.12 mg/dL (0.66-1.25); EST GLOMERULAR FILTRATION RATE 77.1 ML/MIN; Glucose 103 mg/dL (74-106); Potassium 4.1 mmol/L (3.5-5.1); SALICYLATE < 1.0 mg/dL (2-20); SGOT/AST 32 U/L (17-59); SGPT/ALT 36 U/L (0-50); SODIUM 140 mmol/L (135-145); Total Protein 6.3 g/dL (6.3-8.2)
[2024-04-21 13:33] LABS: Appearance Turbid (Clear); Bilirubin Negative (Negative); Blood Negative (Negative); Glucose, Urine Negative (Negative); Hyaline Casts NONE SEEN /LPF (0-2); Ketones Negative (Negative); Leukocyte Esterase Negative (Negative); Nitrite Negative (Negative); Protein,Urine Dip Negative (Negative); RBC 0-2 /HPF (0-5); Specific Gravity 1.015 (1.005-1.030); Urobilinogen 0.2 mg/dL (0.2); WBC 0-2 /HPF (0-5)
[2024-04-21 13:54] LABS: ADD URINE CULTURE? NO (NO); Amourphous Crystal Many /HPF (None Seen); Amphetamine,Urine NEGATIVE (NEGATIVE); Bacteria Few /HPF (None Seen); Barbiturate,Urine NEGATIVE (NEGATIVE); Benzodiazepine,Urine NEGATIVE (NEGATIVE); Cocaine,Urine NEGATIVE (NEGATIVE); Epithelial Cells Rare /HPF (None Seen); Methadone,Urine NEGATIVE (NEGATIVE); Opiate,Urine NEGATIVE (NEGATIVE); PCP,Urine NEGATIVE (NEGATIVE); THC,Urine NEGATIVE (NEGATIVE)
[2024-04-21] MEDS ORDERED: MOTRIN 400 MG ONE (18:14)
[2024-04-21 18:16] VITALS: TEMP 98.2
[2024-04-21] MEDS: MOTRIN 400 MG PO ONE (18:16)
[2024-04-21 19:31] VITALS: RESP 18
[2024-04-21 20:32] VITALS: BP 101/71; PULSE 76; O2SAT 99
== END 2024-04-21 20:58 ==
LOC: ED 11:11
DX: F41.9 Anxiety disorder, unspecified (principal); F32.A Depression, unspecified; I10 Essential (primary) hypertension; Z79.899 Other long term (current) drug therapy; Z72.0 Tobacco use
CPT/HCPCS: 36415; 80053; 80143; 80179; 80307; 81001; 85025; 93005; 99285; A9270-GY